=== PATIENT | female | born 1950 | race Caucasian/White ===

== ENCOUNTER → 2016-07-02 | Outpatient (CLI) | payer MEDICARE, MEDICAID ==
[~2016-07-02] VITALS: Ht 121.9 cm; Wt 28.3 kg
[~2016-07-02] MED LIST: CLOT15CR62 TP; COLL30OI TP; DICL250 PO; LEVO100 PO; LEVO150 PO; LORA10TA7 PO; LOSA25TA21 PO; NYST15OI TP; NYSTATIN 15 GM POWDER BOTTLE TP ONE; NYSTATIN 30 GM OINTMENT TP ONE; TRIA15OI6 TP
[2016-07-02 10:27] VITALS: BP 129/69
== END | disposition home or self-care (01) ==
LOC: HBOWC 09:24
PROVIDERS: ATTEND Emergency Medicine
DX: L89.223 Pressure ulcer of left hip, stage 3 (principal); E03.9 Hypothyroidism, unspecified; L89.152 Pressure ulcer of sacral region, stage 2
CPT/HCPCS: 97597; 97598

== ENCOUNTER → 2016-07-17 | Outpatient (CLI) | payer MEDICARE, MEDICAID ==
[~2016-07-17] MED LIST changes: -DICL250 PO; -LEVO100 PO; -LOSA25TA21 PO; -NYSTATIN 15 GM POWDER BOTTLE TP ONE; -NYSTATIN 30 GM OINTMENT TP ONE; -TRIA15OI6 TP
[2016-07-17 10:28] VITALS: BP 108/60
== END | disposition home or self-care (01) ==
LOC: HBOWC 09:30
PROVIDERS: ATTEND Emergency Medicine
DX: L89.893 Pressure ulcer of other site, stage 3 (principal); L89.892 Pressure ulcer of other site, stage 2; L89.150 Pressure ulcer of sacral region, unstageable; B35.3 Tinea pedis; E73.9 Lactose intolerance, unspecified; Q90.9 Down syndrome, unspecified; R21 Rash and other nonspecific skin eruption; E03.8 Other specified hypothyroidism
CPT/HCPCS: 97597

== ENCOUNTER → 2016-07-31 | Outpatient (CLI) | payer MEDICARE, MEDICAID ==
[~2016-07-31] MED LIST changes: +DICL250 PO
[2016-07-31 09:55] VITALS: BP 126/64
== END | disposition home or self-care (01) ==
LOC: HBOWC 09:34
PROVIDERS: ATTEND Emergency Medicine
DX: L89.153 Pressure ulcer of sacral region, stage 3 (principal); B35.3 Tinea pedis; B35.4 Tinea corporis; E03.9 Hypothyroidism, unspecified
CPT/HCPCS: 97597

== ENCOUNTER → 2016-08-14 | Outpatient (CLI) | payer MEDICARE, MEDICAID ==
[~2016-08-14] MED LIST changes: +TRIA15OI6 TP; +TRIAMCINOLONE 0.1% 15 GM OINTMENT TP ONE; +TRYPSIN/BALSAM PERU/CASTOR OIL 5 GM PACKET [WOUND CENTER ONLY] TP ONE
[2016-08-14 10:36] VITALS: BP 122/73
== END | disposition home or self-care (01) ==
LOC: HBOWC 09:41
PROVIDERS: ATTEND Emergency Medicine
DX: L89.223 Pressure ulcer of left hip, stage 3 (principal); L89.212 Pressure ulcer of right hip, stage 2; B35.1 Tinea unguium; B35.4 Tinea corporis; E03.9 Hypothyroidism, unspecified
CPT/HCPCS: 97597

== ENCOUNTER → 2016-08-28 | Outpatient (CLI) | payer MEDICARE, MEDICAID ==
[~2016-08-28] MED LIST changes: -TRIAMCINOLONE 0.1% 15 GM OINTMENT TP ONE; -TRYPSIN/BALSAM PERU/CASTOR OIL 5 GM PACKET [WOUND CENTER ONLY] TP ONE
[2016-08-28 10:00] VITALS: BP 101/68
== END | disposition home or self-care (01) ==
LOC: HBOWC 09:30
PROVIDERS: ATTEND Emergency Medicine
DX: L89.223 Pressure ulcer of left hip, stage 3 (principal); L89.212 Pressure ulcer of right hip, stage 2; E03.9 Hypothyroidism, unspecified; B35.1 Tinea unguium; Q90.9 Down syndrome, unspecified
CPT/HCPCS: 97597

== ENCOUNTER → 2016-09-11 | Outpatient (CLI) | payer MEDICARE, MEDICAID ==
[~2016-09-11] MED LIST changes: +CLOTRIMAZOLE 1% 15 GM CREAM TP ONE; -DICL250 PO
[2016-09-11 11:38] VITALS: BP 107/68
== END | disposition home or self-care (01) ==
LOC: HBOWC 09:42
PROVIDERS: ATTEND Emergency Medicine
DX: L89.152 Pressure ulcer of sacral region, stage 2 (principal); L89.323 Pressure ulcer of left buttock, stage 3; L89.312 Pressure ulcer of right buttock, stage 2; E03.9 Hypothyroidism, unspecified; B35.1 Tinea unguium; B35.3 Tinea pedis
CPT/HCPCS: 97597

== ENCOUNTER → 2016-10-03 | Outpatient (CLI) | payer MEDICARE, MEDICAID ==
[~2016-10-03] MED LIST changes: +DICL250 PO; +NYSTATIN 30 GM OINTMENT TP ONE; +TRIAMCINOLONE 0.1% 15 GM CREAM TP ONE
[2016-10-03 11:42] VITALS: BP 112/67
== END | disposition home or self-care (01) ==
LOC: HBOWC 10:04
PROVIDERS: ATTEND Emergency Medicine
DX: L89.152 Pressure ulcer of sacral region, stage 2 (principal); L89.893 Pressure ulcer of other site, stage 3; E03.9 Hypothyroidism, unspecified; B35.3 Tinea pedis
CPT/HCPCS: 97597

== ENCOUNTER → 2016-10-23 | Outpatient (CLI) | payer MEDICARE, MEDICAID ==
[~2016-10-23] MED LIST changes: -CLOTRIMAZOLE 1% 15 GM CREAM TP ONE; -COLL30OI TP; -NYSTATIN 30 GM OINTMENT TP ONE; -TRIAMCINOLONE 0.1% 15 GM CREAM TP ONE
[2016-10-23 10:07] VITALS: BP 102/71
== END | disposition home or self-care (01) ==
LOC: HBOWC 09:32
PROVIDERS: ATTEND Emergency Medicine
DX: L89.152 Pressure ulcer of sacral region, stage 2 (principal); L89.223 Pressure ulcer of left hip, stage 3; L89.212 Pressure ulcer of right hip, stage 2; B36.9 Superficial mycosis, unspecified; E03.9 Hypothyroidism, unspecified
CPT/HCPCS: 97597

== ENCOUNTER → 2016-11-06 | Outpatient (CLI) | payer MEDICARE, MEDICAID ==
[~2016-11-06] MED LIST changes: +COLL30OI TP
[2016-11-06 10:10] VITALS: BP 108/62
== END | disposition home or self-care (01) ==
LOC: HBOWC 09:41
PROVIDERS: ATTEND Emergency Medicine
DX: L89.153 Pressure ulcer of sacral region, stage 3 (principal); E03.9 Hypothyroidism, unspecified; B35.3 Tinea pedis
CPT/HCPCS: 97597

== ENCOUNTER → 2016-11-20 | Outpatient (CLI) | payer MEDICARE, MEDICAID ==
[~2016-11-20] MED LIST changes: -DICL250 PO; +PENI250T4 PO; +TRIAMCINOLONE 0.1% 15 GM CREAM TP ONE
[2016-11-20 11:50] VITALS: BP 100/64
== END | disposition home or self-care (01) ==
LOC: HBOWC 10:30
PROVIDERS: ATTEND Emergency Medicine
DX: L89.153 Pressure ulcer of sacral region, stage 3 (principal); E03.9 Hypothyroidism, unspecified; B35.3 Tinea pedis
CPT/HCPCS: 97597

== ENCOUNTER → 2016-12-04 | Outpatient (CLI) | payer MEDICARE, MEDICAID ==
[~2016-12-04] MED LIST changes: -TRIAMCINOLONE 0.1% 15 GM CREAM TP ONE
[2016-12-04 10:24] VITALS: BP 106/71
== END | disposition home or self-care (01) ==
LOC: HBOWC 10:01
PROVIDERS: ATTEND Emergency Medicine
DX: L89.153 Pressure ulcer of sacral region, stage 3 (principal); L89.222 Pressure ulcer of left hip, stage 2; E03.9 Hypothyroidism, unspecified; B35.3 Tinea pedis
CPT/HCPCS: 72220; 97597

== ENCOUNTER → 2017-01-03 | Outpatient (CLI) | payer MEDICARE, MEDICAID ==
[~2017-01-03] MED LIST changes: +ASCO10007 PO; +CEPH500 PO; +LEVO112T4 PO; +LIDOCAINE HCL 2% 5 ML JELLY TP ONE; -PENI250T4 PO; +VIT500LI PO
[2017-01-03 11:29] VITALS: BP 105/56
== END | disposition home or self-care (01) ==
LOC: HBOWC 09:59
PROVIDERS: ATTEND Emergency Medicine
DX: L89.153 Pressure ulcer of sacral region, stage 3 (principal); L89.222 Pressure ulcer of left hip, stage 2; E03.9 Hypothyroidism, unspecified
CPT/HCPCS: 11042

== ENCOUNTER → 2017-01-17 | Outpatient (CLI) | payer MEDICARE, MEDICAID ==
[2017-01-17 13:40] VITALS: BP 150/70
== END | disposition home or self-care (01) ==
LOC: HBOWC 10:18
PROVIDERS: ATTEND Emergency Medicine
DX: L89.153 Pressure ulcer of sacral region, stage 3 (principal); L89.222 Pressure ulcer of left hip, stage 2; E03.8 Other specified hypothyroidism
CPT/HCPCS: 11042

== ENCOUNTER → 2017-01-31 | Outpatient (CLI) | payer MEDICARE, MEDICAID ==
[~2017-01-31] MED LIST changes: -LIDOCAINE HCL 2% 5 ML JELLY TP ONE
[2017-01-31 11:00] VITALS: BP 107/77
== END | disposition home or self-care (01) ==
LOC: HBOWC 10:08
PROVIDERS: ATTEND Emergency Medicine
DX: L89.153 Pressure ulcer of sacral region, stage 3 (principal); L89.222 Pressure ulcer of left hip, stage 2; E03.8 Other specified hypothyroidism
CPT/HCPCS: 11042

== ENCOUNTER → 2017-02-14 | Outpatient (CLI) | payer MEDICARE, MEDICAID ==
[~2017-02-14] MED LIST changes: +LIDOCAINE HCL 4% 50 ML SOLUTION TP ONE
[2017-02-14 11:11] VITALS: BP 103/56
== END | disposition home or self-care (01) ==
LOC: HBOWC 10:36
PROVIDERS: ATTEND Orthopaedic Surgery
DX: L89.153 Pressure ulcer of sacral region, stage 3 (principal); L89.892 Pressure ulcer of other site, stage 2; E03.8 Other specified hypothyroidism
CPT/HCPCS: 11042

== ENCOUNTER → 2017-03-07 | Outpatient (CLI) | payer MEDICARE, MEDICAID ==
[~2017-03-07] MED LIST changes: +LIDOCAINE HCL 2% 5 ML JELLY TP ONE; -LIDOCAINE HCL 4% 50 ML SOLUTION TP ONE
[2017-03-07 11:30] VITALS: BP 150/69
== END | disposition home or self-care (01) ==
LOC: HBOWC 10:05
PROVIDERS: ATTEND Nurse Practitioner Adult Health
DX: L89.153 Pressure ulcer of sacral region, stage 3 (principal); L89.212 Pressure ulcer of right hip, stage 2; E03.9 Hypothyroidism, unspecified
CPT/HCPCS: 11042

== ENCOUNTER → 2017-03-13 | Outpatient (CLI) | payer MEDICARE, MEDICAID ==
[~2017-03-13] MED LIST changes: -CEPH500 PO; -CLOT15CR62 TP; -LIDOCAINE HCL 2% 5 ML JELLY TP ONE; +LIDOCAINE HCL 4% 50 ML SOLUTION TP ONE; -NYST15OI TP; -TRIA15OI6 TP
[2017-03-13 11:20] VITALS: BP 100/59
== END | disposition home or self-care (01) ==
LOC: HBOWC 09:49
PROVIDERS: ATTEND Nurse Practitioner Adult Health
DX: L89.153 Pressure ulcer of sacral region, stage 3 (principal); E03.9 Hypothyroidism, unspecified
CPT/HCPCS: 11042

== ENCOUNTER → 2017-03-20 | Outpatient (CLI) | payer MEDICARE, MEDICAID ==
[~2017-03-20] MED LIST changes: -LIDOCAINE HCL 4% 50 ML SOLUTION TP ONE
[2017-03-20 11:00] VITALS: BP 108/54
== END | disposition home or self-care (01) ==
LOC: HBOWC 09:22
PROVIDERS: ATTEND Nurse Practitioner Adult Health
DX: L89.153 Pressure ulcer of sacral region, stage 3 (principal); E03.9 Hypothyroidism, unspecified

== ENCOUNTER 2017-03-26 08:36 | Emergency (ER) | payer MEDICARE, MEDICAID ==
[~2017-03-26] VITALS: Ht 149.9 cm; Wt 40.0 kg
[~2017-03-26 08:36] MED LIST changes: -ASCO10007 PO; -COLL30OI TP; -LEVO112T4 PO; -VIT500LI PO
[2017-03-26] MEDS ORDERED: VIT500LI PO (08:51)
[2017-03-26 09:52] LABS: BASOPHILS % (AUTO) 0.8 % (0.0-2.0); EOSINOPHILS % (AUTO) 0.1 % (1.0-6.0); HEMATOCRIT 40.4 % (36-46); HEMOGLOBIN 13.7 g/dL (12.0-16.0); LYMPHOCYTES % (AUTO) 10.1 % (22.0-44.0); MEAN CORPUSCULAR HEMOGLOBIN 34.2 pg (26.0-34.0); MEAN CORPUSCULAR VOLUME 101 fL (80-100); MONOCYTES # (AUTO) 0.6 K/uL (0.1-1.0); MONOCYTES % (AUTO) 6.6 % (2.0-9.0); NEUTROPHILS # (AUTO) 7.8 K/uL (1.8-7.7); NEUTROPHILS % (AUTO) 82.4 % (40.0-70.0); PLATELET COUNT (AUTO) 381 K/uL (150-450); RED BLOOD CELL COUNT(AUTO) 4.01 MIL/uL (4.00-5.20); RED CELL DISTRIBUTION WIDTH 13.8 % (11.5-14.5); WHITE BLOOD COUNT (AUTO) 9.5 K/uL (4.5-11.0)
[2017-03-26 09:57] LABS: ANION GAP 6 mmol/L (8-16); CALCIUM, TOTAL 8.8 mg/dL (8.8-10.5); CARBON DIOXIDE 30 mmol/L (22-29); CHLORIDE 102 mmol/L (98-107); CREATININE 0.63 mg/dL (0.60-1.30); GLOMERULAR FILTR. RATE CALC > 60 mL/min (>60); POTASSIUM 3.6 mmol/L (3.5-5.1); SODIUM SERUM 138 mmol/L (136-145); UREA NITROGEN, BLOOD 8 mg/dL (7-18)
[2017-03-26 10:03] LABS: ALANINE AMINOTRANSFERASE 24 U/L (12-78); ALBUMIN 2.7 g/dL (3.4-5.0); ASPARTATE AMINOTRANSFERASE 16 U/L (15-37); BILIRUBIN,TOTAL 0.3 mg/dL (0.1-1.0); CREATINE KINASE, TOTAL 35 U/L (26-192); TOTAL PROTEIN, SERUM 7.2 g/dL (6.4-8.2)
[2017-03-26 10:14] LABS: B-TYPE NATRIURETIC PEPTIDE 134 pg/mL (0-100)
[2017-03-26 10:36] LABS: RBC MORPHOLOGY COMMENT ABNORMAL RBC MORPH
[2017-03-26 10:42] LABS: APPEARANCE,URINE CLEAR (CLEAR); GLUCOSE, URINE (UA) NEGATIVE (NEGATIVE); KETONES,URINE NEGATIVE (NEGATIVE); LEUKOCYTE ESTERASE ,URINE NEGATIVE (NEGATIVE); OCCULT BLOOD,URINE NEGATIVE (NEGATIVE); PH,URINE 6.5 (5.0-8.0); PROTEIN,URINE NEGATIVE (NEGATIVE)
[2017-03-26 10:44] LABS: ADD UA MICROSCOPIC NO
[2017-03-26] MEDS ORDERED: SODIUM CHLORIDE 0.9% 1,000 ML IV ONE ×2 (11:30→12:45)
[2017-03-26] MEDS ORDERED: ASCO10007 PO (11:33)
[2017-03-26] MEDS ORDERED: LEVO112T4 PO (11:34)
[2017-03-26 12:26] LABS: LACTIC ACID 2.1 mmol/L (0.4-2.0)
[2017-03-26 13:03] LABS: INFLUENZA TYPE B NEGATIVE FOR TYPE B (NEGATIVE)
[2017-03-26 13:45] LABS: REFLEX LACTIC ACID? YES YES
[2017-03-26] MEDS ORDERED: CefTRIAXone 1 GM/DEXTROSE 50 ML IV ONE (15:00)
[2017-03-26 15:21] VITALS: BP 97/57
== END 2017-03-26 16:14 | disposition home or self-care (01) ==
LOC: EMS 08:39
DX: J06.9 Acute upper respiratory infection, unspecified (principal); F89 Unspecified disorder of psychological development; E03.9 Hypothyroidism, unspecified; Z91.011 Allergy to milk products; Z91.018 Allergy to other foods
CPT/HCPCS: 36415; 71010; 80053; 81003; 82550; 83605; 83690; 83880; 84484; 85025; 87804; 93005; 96361; 96365; 99285; J0696; J7030

== ENCOUNTER → 2017-04-10 | Outpatient (CLI) | payer MEDICARE, MEDICAID ==
[~2017-04-10] MED LIST changes: +ASCO10007 PO; +LEVO112T4 PO; -LEVO150 PO; -LORA10TA7 PO
[2017-04-10 10:42] VITALS: BP 101/56
== END | disposition home or self-care (01) ==
LOC: HBOWC 10:28
PROVIDERS: ATTEND Nurse Practitioner Adult Health
DX: L89.153 Pressure ulcer of sacral region, stage 3 (principal); E03.9 Hypothyroidism, unspecified

== ENCOUNTER → 2017-04-17 | Outpatient (CLI) | payer MEDICARE, MEDICAID ==
[~2017-04-17] MED LIST changes: +LIDOCAINE HCL 2% 5 ML JELLY ONE; +TRYPSIN/BALSAM PERU/CASTOR OIL 5 GM PACKET [WOUND CENTER ONLY] TP ONE
[2017-04-17 11:00] VITALS: BP 101/73
== END | disposition home or self-care (01) ==
LOC: HBOWC 10:37
PROVIDERS: ATTEND Nurse Practitioner Adult Health
DX: L89.153 Pressure ulcer of sacral region, stage 3 (principal); E03.9 Hypothyroidism, unspecified

== ENCOUNTER → 2017-05-01 | Outpatient (CLI) | payer MEDICARE, MEDICAID ==
[~2017-05-01] MED LIST changes: -LIDOCAINE HCL 2% 5 ML JELLY ONE; -TRYPSIN/BALSAM PERU/CASTOR OIL 5 GM PACKET [WOUND CENTER ONLY] TP ONE
[2017-05-01 11:12] VITALS: BP 119/65
== END | disposition home or self-care (01) ==
LOC: HBOWC 10:40
PROVIDERS: ATTEND Nurse Practitioner Adult Health
DX: L89.153 Pressure ulcer of sacral region, stage 3 (principal); L89.222 Pressure ulcer of left hip, stage 2; R53.81 Other malaise; L30.8 Other specified dermatitis; E03.9 Hypothyroidism, unspecified
CPT/HCPCS: 97597

== ENCOUNTER → 2017-05-29 | Outpatient (CLI) | payer MEDICARE, MEDICAID ==
[2017-05-29 11:11] VITALS: BP 111/72
== END | disposition home or self-care (01) ==
LOC: HBOWC 10:13
PROVIDERS: ATTEND Nurse Practitioner Adult Health
DX: L89.212 Pressure ulcer of right hip, stage 2 (principal); L30.8 Other specified dermatitis; R53.81 Other malaise; L89.153 Pressure ulcer of sacral region, stage 3; E03.9 Hypothyroidism, unspecified

== ENCOUNTER → 2017-08-18 | Outpatient (CLI) | payer MEDICARE, MEDICAID ==
[2017-08-18 11:41] VITALS: BP 110/71
== END | disposition home or self-care (01) ==
LOC: HBOWC 10:29
PROVIDERS: ATTEND Surgery Plastic and Reconstructive Surgery
DX: L89.211 Pressure ulcer of right hip, stage 1 (principal); L30.8 Other specified dermatitis; E03.9 Hypothyroidism, unspecified; R53.81 Other malaise

== ENCOUNTER → 2017-09-15 | Outpatient (CLI) | payer MEDICARE, MEDICAID ==
[2017-09-15 10:47] VITALS: BP 112/65
== END | disposition home or self-care (01) ==
LOC: HBOWC 10:04
PROVIDERS: ATTEND Surgery Plastic and Reconstructive Surgery
DX: L89.211 Pressure ulcer of right hip, stage 1 (principal); E03.9 Hypothyroidism, unspecified; R53.81 Other malaise; L30.8 Other specified dermatitis